=== PATIENT | female | born 1960 | race Caucasian/White ===

== ENCOUNTER 2021-09-09 19:06 | Emergency (ER) | payer OTHER, SELFPAY ==
[2021-09-09 19:15] VITALS: BP 116/79; PULSE 108; RESP 18; TEMP 36.1; O2SAT 94; BMI 32.3
--- NOTE | 2021-09-09 19:18 | ECG_ITS ---
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 Measurements Intervals [place] Rate: 108 P: 53 MO: 171 QRS: 88 QRSD: 101 T: 71 QT: 369 QTc: 495 Interpretive Statements SINUS TACHYCARDIA ABNORMAL RHYTHM ECG No previous ECG available for comparison Electronically Signed On 09-09-2021 20:27:40 CDT by Lucy Moreno M.D. [id number]
--- NOTE | 2021-09-09 19:18 | XRR_ITS ---
PROCEDURE INFORMATION: Exam: XR Chest Exam date and time: 09/09/2021 6:34 PM Age: 60 years old Clinical indication: Pain; Angina pectoris; Additional info: Cp TECHNIQUE: Imaging protocol: XR of the chest. Views: 1 view. COMPARISON: CT abdomen pelvis w con* [id number] 04/19/2016 12:47 AM FINDINGS: Lungs: Unremarkable. No consolidation. Pleural spaces: Unremarkable. No pleural effusion. No pneumothorax. Heart/Mediastinum: Unremarkable. No cardiomegaly. Bones/joints: Unremarkable. XR/XR chest 1V portable [id number] IMPRESSION: No acute findings.
--- NOTE | 2021-09-09 19:52 | ED_ITS ---
HPI - Allergic Reaction General: Chief complaint: Allergic Reaction Stated complaint: ALLREGIC REACTION Time Seen by Provider: 09/09/21 19:12 Source: patient and EMS Mode of arrival: EMS Limitations: no limitations History of Present Illness: HPI narrative: 60-year-old female who states she was having allergic reaction today. States that she is having some swelling in her fingers and lips with a slight rash states she started to feel lightheaded diaphoretic dizzy and laid on the floor. EMS arrived and stated that she did have some swelling they gave her epinephrine albuterol updraft and Benadryl states she is feeling improved currently she is having some tachycardia likely from epinephrine denies any chest pain currently denies any vomiting or diarrhea. Associated symptoms: Deny abdominal pain, nausea or vomiting Review of Systems Const: Reports: fatigue Eyes: Denies: blurry vision or eye discomfort ENMT: Denies: throat pain or dental pain Card: Denies: chest pain Resp: Denies: dyspnea GI: Denies: abdominal pain, nausea, vomiting or diarrhea : Denies: dysuria Musc: Denies: neck pain or back pain Skin/Breast: Reports: rash and skin swelling Neuro: Denies: headache(s) Psych: Denies: depression Preet/Lymph: Denies: easy bruising All/Imm: Denies: urticaria Physical Exam Const: COMMON NORMALS: no acute distress, patient oriented x3 and healthy appearing HENMT: COMMON NORMALS: normocephalic and atraumatic HEAD & SCALP: normocephalic and atraumatic Eye: COMMON NORMALS: Equal, round and reactive pupils present and EOMs intact bilaterally PUPIL: Yes Equal, round and reactive pupils present Neck/C-Spine: COMMON NORMALS: full ROM and supple Chest: COMMONS NORMALS: normal inspection of the chest and normal palpation of entire chest wall Resp: COMMON NORMALS: normal respiratory effort, No retractions, No use of accessory muscles and clear to auscultation bilaterally AUSCULTATION: clear to auscultation bilaterally Cardio: COMMON NORMALS: regular rhythm and No murmurs present (Cardio) RATE: tachycardic RHYTHM: regular rhythm GI: COMMON NORMALS: Normal to inspection, nondistended, normoactive bowel sounds present, Soft to palpation, non-tender and no masses PALPATION: Yes Soft to palpation Extremity: COMMON NORMALS: normal to inspection and full ROM Neuro: COMMON NORMALS: patient oriented x3, moves all extremities and no focal motor deficits Psych: COMMON NORMALS: mental status grossly normal, Normal thought process present and cooperative THOUGHT PROCESS: Normal thought process present Skin: COMMON NORMALS: no rashes or lesions noted and no wounds GENERAL SKIN EXAM: no rashes or lesions noted Course Vital Signs: Vital signs: Vital Signs Temperature 97.0 F L 09/09/21 19:15 Pulse Rate 88 09/09/21 22:12 Respiratory Rate 18 09/09/21 22:12 Blood Pressure 118/67 09/09/21 22:12 Pulse Oximetry 98 09/09/21 22:12 MDM - Allergic Reaction Medical Decision Making Patient presents here with a likely allergic reaction she was also having some abdominal pain and nausea vomiting could be due to her allergic reaction she was having as well. Did have an elevated white count here but did receive epinephrine in the field. CT scan here showed some enteritis no other findings troponins normal as well she feels much improved here her swelling is resolved will prescribe her an EpiPen she is to follow-up PCP and return if worsening. Lab Data : 09/09/21 20:55 09/09/21 20:55 Radiology Impressions Chest X-Ray 09/09/21 19:18 IMPRESSION: No acute findings. Chest/Abdomen/Pelvis CT 09/09/21 21:12 IMPRESSION: There are no acute concerning abnormalities. There is a 0.4 cm nodule in the right lower lobe of the lung.For patients at low risk (minimal or absent history of smoking and of other known risk factors), no routine follow-up is indicated. For patients at high risk (history of smoking or of other known risk factors), consider optional CT IMPRESSION: Findings are suggestive of pelvic small bowel enteritis.Clinical correlation is advised. Laboratory Results WBC 22.5 10^3/uL (4.0-10.0) H 09/09/21 20:55 RBC 4.73 10^6/uL (4.1-5.3) 09/09/21 20:55 Hgb 13.8 g/dL (11.5-15.3) 09/09/21 20:55 Hct 41.7 % (37.0-47.0) 09/09/21 20:55 MCV 88.2 fl (81-99) 09/09/21 20:55 MCH 29.2 pg (28.0-34.0) 09/09/21 20:55 MCHC 33.1 g/dL (30.0-36.0) 09/09/21 20:55 RDW 13.7 % (12.1-15.1) 09/09/21 20:55 Plt Count 331 10^3/cmm (130-400) 09/09/21 20:55 MPV 9.0 fL (7.4-10.4) 09/09/21 20:55 Neut % (Auto) 85.3 % 09/09/21 20:55 Lymph % (Auto) 9.7 % 09/09/21 20:55 [place] % (Auto) 4.3 % 09/09/21 20:55 Eos % (Auto) 0.0 % 09/09/21 20:55 Baso % (Auto) 0.2 % 09/09/21 20:55 Neut # (Auto) 19.16 10^3/uL (1.8-7.7) H 09/09/21 20:55 Lymph # (Auto) 2.2 10^3/uL (0.8-4.8) 09/09/21 20:55 [place] # (Auto) 1.0 10^3/uL (0.2-0.9) H 09/09/21 20:55 Eos # (Auto) 0.0 10^3/uL (0.0-0.8) 09/09/21 20:55 Baso # (Auto) 0.1 10^3/uL (0.0-0.1) 09/09/21 20:55 Nucleated RBC % (auto) 0 % 09/09/21 20:55 Nucleated RBCs # 0.0 /100WBC 09/09/21 20:55 Sodium 137 mmol/L (136-145) 09/09/21 20:55 Potassium 4.1 mmol/L (3.5-5.1) 09/09/21 20:55 Chloride 98 mmol/L (98-107) 09/09/21 20:55 Carbon Dioxide 23 mmol/L (22-29) 09/09/21 20:55 Anion Gap 20.1 (5-19) H 09/09/21 20:55 BUN 15 mg/dL (6-20) 09/09/21 20:55 Creatinine 1.2 mg/dL (0.5-0.9) H 09/09/21 20:55 GFR Calculation 46.1 mL/min (90-130) L 09/09/21 20:55 Glucose 257 mg/dL (65-115) H 09/09/21 20:55 Calculated Osmolality 294 mOsm/kg (285-295) 09/09/21 20:55 Calcium 9.3 mg/dL (8.5-10.5) 09/09/21 20:55 Total Bilirubin 0.3 mg/dL (0.15-1.2) 09/09/21 20:55 AST 17 U/L (0-32) 09/09/21 20:55 ALT 17 U/L (0-33) 09/09/21 20:55 Alkaline Phosphatase 87 IU/L (35-105) 09/09/21 20:55 Troponin T Baseline 7 ng/L (0-10) 09/09/21 20:55 Total Protein 6.5 g/dL (6.6-8.7) L 09/09/21 20:55 Albumin 3.9 g/dL (3.5-5.2) 09/09/21 20:55 Globulin 2.6 g/dL (1.3-4.6) 09/09/21 20:55 Lipase 23 U/L (13-60) 09/09/21 20:55 Urine Color Yellow (Yellow) 09/09/21 21:36 Urine Appearance Clear (CLEAR) 09/09/21 21:36 Urine pH 5 (5-7) 09/09/21 21:36 Ur Specific [place] 1.030 (1.005-1.030) 09/09/21 21:36 Urine Protein Neg (Negative) 09/09/21 21:36 Urine Glucose (UA) Trace (Normal) H 09/09/21 21:36 Urine Ketones 1+ (Negative) H 09/09/21 21:36 Urine Blood Neg (Negative) 09/09/21 21:36 Urine Nitrate Negative (Negative) 09/09/21 21:36 Urine Bilirubin Neg (Negative) 09/09/21 21:36 Urine Urobilinogen Norm mg/dL (Negative) 09/09/21 21:36 Ur Leukocyte Esterase Negative (Negative) 03/21/22 21:36 EKG Data EKG 1: I personally reviewed and interpreted this EKG as follows: EKG interpretation date: 09/09/21 EKG interpretation time: 19:29 Interpretation: sinus tach hr [address] or t wave abnormalities qrs 101 qtc 432 EKG 2: I personally reviewed and interpreted this EKG as follows: EKG interpretation date: 09/09/21 EKG interpretation time: 21:10 Interpretation: sinus tach hr [address] or t wave abnormalities qrs 109 qtc 466 Discharge Plan Discharge Patient Disposition: Home Clinical Impression: Abdominal pain Allergic reaction Qualifiers: Encounter type: initial encounter Qualified Code(s): T78.40XA - Allergy, unspecified, initial encounter Condition: Stable Prescriptions: New ondansetron 4 mg tablet,disintegrating 4 mg PO Q6H PRN (Reason: nausea and vomiting) Qty: 14 0RF EpiPen 0.3 mg/0.3 mL auto-injector 0.3 mg IM Q20M PRN (Reason: anaphylaxis) Qty: 2 0RF Rx Instructions: for 2 doses Discharge Orders: Discharge ED (Routine); Ordered 09/09/21 Ordered By: Alia Escamilla Referrals: Janey Philip FNP [Family Provider] - Discharge Diet: Advance as tolerated Discharge Activity: Resume usual activity Patient Instructions: Abdominal Pain (ED), General Allergic Reaction (ED) Coding Level of Care Code ED Course Developer for Chg Fwd Exam Comprehensive
[2021-09-09] MEDS: sodium chloride 0.9% 500 ML 999 ML IV (20:00)
[2021-09-09 21:02] LABS: Basophils # 0.1 10^3/uL (0.0-0.1); Basophils % 0.2 %; Hematocrit 41.7 % (37.0-47.0); Hemoglobin 13.8 g/dL (11.5-15.3); Lymphocytes # 2.2 10^3/uL (0.8-4.8); Lymphocytes % 9.7 %; Mean Corpuscular HGB Conc 33.1 g/dL (30.0-36.0); Mean Corpuscular Hemoglobin 29.2 pg (28.0-34.0); Mean Corpuscular Volume 88.2 fl (81-99); Monocytes % 4.3 %; Neutrophils # 19.16 10^3/uL (1.8-7.7); Neutrophils % 85.3 %; Nucleated Red Blood Cells % 0 %; Platelet Count 331 10^3/cmm (130-400); Red Blood Count 4.73 10^6/uL (4.1-5.3); Red Cell Distribution Width 13.7 % (12.1-15.1); White Blood Count 22.5 10^3/uL (4.0-10.0)
--- NOTE | 2021-09-09 21:12 | CTR_ITS ---
PROCEDURE INFORMATION: Exam: CTA Chest With Contrast Exam date and time: 09/09/2021 9:59 PM Age: 60 years old Clinical indication: Other: N/a; Abdominal pain; Other: Diaphoretic; Chest pressure; Prior surgery; Surgery type: Gb. Hysterectomy. ; Patient HX: C/O chest pain with generalized abd pain. Diaphoresis. History of diverticulitis. ; Additional info: Cp TECHNIQUE: Imaging protocol: Computed tomographic angiography of the chest with contrast. 3D rendering (Not supervised by radiologist): MIP and/or 3D reconstructed images were created by the technologist. Radiation optimization: All CT scans at this facility use at least one of these dose optimization techniques: automated exposure control; mA and/or kV adjustment per patient size (includes targeted exams where dose is matched to clinical indication); or iterative reconstruction. Contrast material: VISI 320; Contrast volume: 95 ml; Contrast route: INTRAVENOUS (IV); COMPARISON: CR (CHEST, ) 09/09/2021 6:34 PM RADIATION DOSE METRICS: Total DLP (mGy-cm): 1296.93 FINDINGS: Pulmonary arteries: Normal. No pulmonary emboli. Aorta: Unremarkable. No aortic aneurysm. No aortic dissection. Lungs: There is a 0.4 cm nodule in the right lower lobe of the lung on series 2, image 226. No other areas of lung consolidation. Pleural spaces: Unremarkable. No pneumothorax. No pleural effusion. Heart: Unremarkable. No cardiomegaly. No pericardial effusion. Lymph nodes: Unremarkable. No enlarged lymph nodes. Bones/joints: Degenerative change is identified in the spine. There is no evidence for acute fracture or malalignment. Soft tissues: Unremarkable. Chest at 12 months. (Reference: [place]) References: [place] Houser et al. Guidelines for Management of Incidental Pulmonary Nodules Detected on CT Images: From the Fleischner Society 2017. Radiology. 2017;284(1):228-243. PROCEDURE INFORMATION: Exam: CT Abdomen And Pelvis With Contrast Exam date and time: 09/09/2021 9:59 PM Age: 60 years old Clinical indication: Other: N/a; Abdominal pain; Other: Diaphoretic; Chest pressure; Prior surgery; Surgery type: Gb. Hysterectomy. ; Patient HX: C/O chest pain with generalized abd pain. Diaphoresis. History of diverticulitis. ; Additional info: Cp TECHNIQUE: Imaging protocol: Computed tomography of the abdomen and pelvis with contrast. Radiation optimization: All CT scans at this facility use at least one of these dose optimization techniques: automated exposure control; mA and/or kV adjustment per patient size (includes targeted exams where dose is matched to clinical indication); or iterative reconstruction. Contrast material: VISI 320; Contrast volume: 95 ml; Contrast route: INTRAVENOUS (IV); COMPARISON: CR (CHEST, ) 09/09/2021 6:34 PM RADIATION DOSE METRICS: Total DLP (mGy-cm): 1296.93 FINDINGS: Liver: Findings consistent with fatty infiltration of the liver are identified. Gallbladder and bile ducts: There has been a cholecystectomy. Pancreas: Normal. No ductal dilation. Spleen: Normal. No splenomegaly. Adrenal glands: Normal. No mass. Kidneys and ureters: Normal. No hydronephrosis. Stomach and bowel: Colonic diverticula are present although there are no CT findings to suggest diverticulitis. There is probable wall thickening of pelvic small bowel. For example, as seen on series 3, image 72. No bowel obstruction. Appendix: The appendix is visualized and appears normal. Intraperitoneal space: There is a small amount of free fluid in the pelvis. Vasculature: Unremarkable. No abdominal aortic aneurysm. Lymph nodes: Unremarkable. No enlarged lymph nodes. Urinary bladder: Unremarkable as visualized. Reproductive: There has been a hysterectomy. Bones/joints: Unremarkable. No acute fracture. Soft tissues: Unremarkable. CT/CT angio chest w abd pel w con IMPRESSION: There are no acute concerning abnormalities. There is a 0.4 cm nodule in the right lower lobe of the lung.For patients at low risk (minimal or absent history of smoking and of other known risk factors), no routine follow-up is indicated. For patients at high risk (history of smoking or of other known risk factors), consider optional CT IMPRESSION: Findings are suggestive of pelvic small bowel enteritis.Clinical correlation is advised.
--- NOTE | 2021-09-09 21:18 | ECG_ITS ---
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 Measurements Intervals [place] Rate: 111 P: 61 IN: 172 QRS: 65 QRSD: 109 T: 65 QT: 401 QTc: 545 Interpretive Statements SINUS TACHYCARDIA INDETERMINATE AXIS NONSPECIFIC T-WAVE ABNORMALITY Compared to ECG 09/09/2021 19:29:55 Indeterminate axis now present T-wave abnormality now present Electronically Signed On 09-10-2021 16:45:35 CDT by Maria Elena Pisano M.D. [id number]
[2021-09-09 21:30] LABS: Alanine Aminotransferase 17 U/L (0-33); Albumin Level 3.9 g/dL (3.5-5.2); Alkaline Phosphatase 87 IU/L (35-105); Anion Gap 20.1 (5-19); Aspartate Amino Transferase 17 U/L (0-32); Blood Urea Nitrogen 15 mg/dL (6-20); Calcium 9.3 mg/dL (8.5-10.5); Carbon Dioxide 23 mmol/L (22-29); Chloride 98 mmol/L (98-107); Globulin 2.6 g/dL (1.3-4.6); Glomerular Filtration Rate 46.1 mL/min (90-130); Glucose 257 mg/dL (65-115); Lipase 23 U/L (13-60); Osmolality Calculated 294 mOsm/kg (285-295); Potassium 4.1 mmol/L (3.5-5.1); Sodium 137 mmol/L (136-145); Total Bilirubin 0.3 mg/dL (0.15-1.2); Total Protein 6.5 g/dL (6.6-8.7)
[2021-09-09 21:32] LABS: Troponin(5th) Baseline 7 ng/L (0-10)
[2021-09-09 21:43] LABS: Add Urine Microscopic? NO; Charge for UA Resulting for Rev
[2021-09-09] MEDS: iodixanol 320 mg/mL 100mL Btl IV (21:58)
[2021-09-09 21:59] LABS: Bilirubin Urine Neg (Negative); Blood Urine Neg (Negative); Glucose Urine UA Trace (Normal); Ketones Urine 1+ (Negative); Leukocyte Esterase Urine Negative (Negative); Nitrate Urine Negative (Negative); Protein Urine Neg (Negative); Urine Appearance Clear (CLEAR); Urine Color Yellow (Yellow); Urobilinogen Urine Norm (Negative); pH Urine 5 (5-7)
[2021-09-09 22:12] VITALS: BP 118/67; PULSE 88; RESP 18; O2SAT 98
== END 2021-09-09 22:56 | disposition home or self-care (01) ==
PROVIDERS: Emergency Provider Emergency Medicine; Family Provider Nurse Practitioner Family
DX: T78.40XA Allergy, unspecified, initial encounter (principal); R10.9 Unspecified abdominal pain
CPT/HCPCS: 71045; 71275; 74177; 80053; 81003; 83690; 84484; 85025; 93005; 99283; J7040; Q9967